=== PATIENT | female | born 1985 | race Hispanic/Latino ===

== ENCOUNTER 2022-12-28 07:58 | Emergency (ER) | payer SELFPAY ==
[2022-12-28 08:04] VITALS: BP 123/82; PULSE 96; RESP 16; TEMP 36.6; O2SAT 98
[2022-12-28 08:49] VITALS: BP 113/87
[2022-12-28 08:52] LABS: Basophils Absolute Auto 0.1 K/mm3 (0.0-0.1); Basophils Percent Auto 0.9 % (0.2-1.2); Eosinophils Absolute Auto 0.1 K/mm3 (0-0.3); Eosinophils Percent Auto 0.6 % (0-4.4); Hematocrit 45.5 % (37.0-47.0); Hemoglobin 15.1 g/dL (12.0-15.0); Immature Granulocyte Absolute 0.03 K/mm3 (0.00-0.031); Immature Granulocyte Percent A 0.4 % (0-0.5); Lymphocytes Absolute Auto 2.23 K/mm3 (0.9-3.2); Lymphocytes Percent Auto 28.1 % (18.3-44.2); Mean Corpuscular HGB Conc 33.2 g/dl (32-36); Mean Corpuscular Hemoglobin 30.6 pg (26-34); Mean Corpuscular Volume 92.3 fl (80-100); Mean Platelet Volume 9.8 fl (7.4-10.4); Monocytes Absolute Auto 0.5 K/mm3 (0.1-0.6); Monocytes Percent Auto 6.7 % (2.6-8.5); Neutrophils Percent Auto 63.3 % (45.5-73.1); Platelet Count Result 291 k/mm3 (150-375); Red Blood Count 4.93 M/mm3 (4.2-5.4); Red Cell Distribution Width 12.4 % (11.5-14.5); White Blood Count 7.9 K/mm3 (4.5-10.0)
[2022-12-28] MEDS: SODIUM CHLORIDE 0.9% IV 1,000 ML 999 ML IV CONT ×2 (08:52→10:06)
[2022-12-28 09:03] VITALS: BP 108/74
[2022-12-28 09:03] LABS: Alanine Aminotransferase 106 U/L (6-35); Albumin Level 4.7 g/dL (3.5-5.1); Alkaline Phosphatase 66 U/L (38-126); Anion Gap 11 mmol/L (8-16); Aspartate Amino Transferase 72 U/L (14-36); Bilirubin,Total 0.9 mg/dL (0.2-1.3); Blood Urea Nitrogen 14 mg/dL (7-17); Calcium 9.3 mg/dL (8.4-10.2); Carbon Dioxide 24 mmol/L (22-30); Chloride 104 mmol/L (98-107); Estimated CRCL calculation 155 ml/min; Estimated Glomerular Filt Rate > 60; Glucose 189 mg/dL (65-110); Lipase 140 U/L (23-300); Potassium 3.6 mmol/L (3.4-5.0); Sodium 139 mmol/L (137-145)
--- NOTE | 2022-12-28 09:26 | ED.NAVMDI ---
HPI - Nausea/Vomiting/Diarrhea General Chief complaint: Nausea/Vomiting/Diarrhea Stated complaint: Nausea/vomitting/diarrhea Time Seen by Provider: 12/28/22 09:07 History of Present Illness HPI Narrative: 37-year-old female reports to the emergency department for evaluation of nausea, vomiting and abdominal cramping for 3 days. Patient states 3 days ago she had [employer] and a lemon, 34 hours later developed her symptoms. She reports abdominal cramping in the epigastrium, vomiting that was initially yellow and is now clear, and inability to tolerate p.o. intake without initiating emesis. She states 2 days ago she developed watery diarrhea and has had 3 episodes of diarrhea since. She denies fever, body aches or chills, recent travel or antibiotic use, cough, congestion, sore throat, chest pain or shortness of breath, dysuria, hematuria, vaginal discharge or bleeding, concern for STDs. LMP 8/20. States sometimes she has irregular periods but is unsure if she is . Related Data Allergies Allergy/AdvReac Type Severity Reaction Status Date / Time No Known Allergies Allergy Verified 12/28/22 08:00 Review of Systems Review of Systems: CONSTITUTIONAL: Denies fever, chills EYES: Denies visual changes, redness, or discharge. ENT: Denies rhinorrhea, congestion, sore throat, or otalgia. CARDIOVASCULAR: Denies chest pain, palpitations, or edema. RESPIRATORY: Denies cough or dyspnea. GASTROINTESTINAL: See HPI GENITOURINARY: Denies dysuria or hematuria. SKIN: Denies rash or itching. MUSCULOSKELETAL: Denies back pain, joint pain, or myalgia. NEUROLOGIC: Denies headache, numbness, dizziness, or weakness. PSYCHIATRIC: Denies anxiety or depression. Exam Narrative: GENERAL: Well-appearing, in no acute distress. Patient resting comfortably in exam bed. She is pleasant and conversational HEAD: Normocephalic EYES: PERRLA ENT: Nares clear. Mucous membranes moist. Oropharynx without tonsillar hypertrophy exudate or other lesions. NECK: Supple. CHEST: No respiratory distress. Clear to auscultation, no adventitious breath sounds. HEART: Regular rate and rhythm. No murmur heard. Normal peripheral pulses. ABDOMEN: Soft, nontender, normal active bowel sounds. No CVA tenderness. EXTREMITIES: Normal range of motion. No edema. SKIN: Warm, dry, no rash. NEURO: No focal deficits. Alert and oriented x3. PSYCH: Normal mood and affect. Course Vital Signs Vital signs: Vital Signs Temperature 97.9 F 12/28/22 08:04 Pulse Rate 96 12/28/22 08:04 Respiratory Rate 16 12/28/22 08:04 Blood Pressure 123/82 12/28/22 08:04 Pulse Oximetry 98 12/28/22 08:04 Oxygen Delivery Room Air 12/28/22 08:04 Temperature 97.9 F 12/28/22 08:04 Pulse Rate 96 12/28/22 08:04 Respiratory Rate 16 12/28/22 08:04 Blood Pressure 132/86 12/28/22 10:53 Pulse Oximetry 98 12/28/22 08:04 Oxygen Delivery Room Air 12/28/22 08:04 MDM - Nausea/Vomiting/Diarrhea MDM Narrative Medical decision making narrative: 37-year-old female reports for evaluation of nausea, vomiting and diarrhea x2 to 3 days. See HPI for further history. Vitals stable, she is afebrile. She is well-appearing on exam. Abdomen is soft and nontender. CBC unremarkable, no leukocytosis. She is slightly hemoconcentrated with a hemoglobin of 15.1. Chemistry significant for a glucose of 189, AST 72, ALT of 106. Urinalysis significant for 2+ ketones. COVID and flu are negative. Lipase normal. Patient received fluids, Zofran and Toradol with improvement. Labs and imaging discussed. She does state that she has been told she is borderline diabetic and currently does not have a PCP. Her bicarb is normal, no acidosis concerning for DKA, urine ketones likely secondary to dehydration. She also states that she is been told she is fatty liver disease. Her abdomen is soft and nontender, no left upper quadrant tenderness concerning for hepatobiliary pathology causing
[2022-12-28 09:29] LABS: Influenza A QL RT-PCR Negative (Negative); Influenza B QL RT-PCR Negative (Negative); SARS-CoV-2 RNA PCR Negative (Negative)
[2022-12-28 09:33] VITALS: BP 120/86
[2022-12-28 09:58] LABS: Appearance Urine Clear (Clear); Bacteria Urine None Seen /hpf; Bilirubin Urine Negative (Negative); Blood Urine Negative (Negative); Color Urine Yellow (Yellow); Glucose Urine UA Negative (Negative); Ketones Urine 2+ mg/dL (Negative); Leukocyte Esterase Ur Negative LEU/UL (Negative); Nitrate Urine Negative (Negative); Protein Urine Trace mg/dL (Negative); RBC Urine 0-2 /hpf (0-2); Specific Grav Ur 1.022 (1.001-1.035); Squamous Epithelial Cell Urine Occasional /hpf (Few); WBC Urine 0-5 /hpf
[2022-12-28 10:03] LABS: Add Urine Microscopic? YES
[2022-12-28] MEDS: ONDANSETRON INJ 4 MG/2 ML VIAL IV PUSH (10:06)
[2022-12-28 10:53] VITALS: BP 132/86
[2022-12-28 11:04] LABS: Pregnancy On Board Control Positive; Urine Pregnancy Test Negative
[2022-12-28] MEDS: KETOROLAC 30 MG/ML VIAL (*BKC) IV PUSH (11:22)
== END 2022-12-28 11:52 | disposition home or self-care (01) ==
PROVIDERS: Preventive Medicine Aerospace Medicine; Emergency Provider Physician Assistant
DX: K52.9 Noninfective gastroenteritis and colitis, unspecified (principal); Z20.822 Contact with and (suspected) exposure to COVID-19
CPT/HCPCS: 36415; 80053; 81001; 81025; 83690; 85025; 87636; 96361; 96374; 96375; 99284; J1885; J2405; J7030